=== PATIENT | female | born 2000 | race Caucasian/White ===

== ENCOUNTER 2025-01-19 06:26 | Inpatient (IN) ==
[~2025-01-19 06:26] MED LIST: XYLOCAINE 2 % (PLAIN) ONE
[2025-01-19] MEDS ORDERED: ANCEF VIAL 1 GRAM ONE (06:34)
[2025-01-19] MEDS ORDERED: LR 1,000 ML IV 1,000 ML IV ONE (06:34)
[2025-01-19] MEDS: LR 1,000 ML IV 1,000 ML IV SCH (06:51)
[2025-01-19] MEDS: ANCEF VIAL 1 GRAM IVP ONE (06:52)
[2025-01-19] MEDS: NS 100 ML IV 100 ML ONE (06:52)
[2025-01-19] MEDS: XYLOCAINE 2 % (PLAIN) ONE (06:54)
[2025-01-19] MEDS: REGLAN INJ 10 MG VIAL ONE (06:54)
[2025-01-19] MEDS: ZOFRAN INJ 4 MG VIAL ONE (06:54)
[2025-01-19] MEDS: EPHEDRINE SULFATE INJ ONE (06:54)
[2025-01-19] MEDS: PITOCIN ONE (06:54)
[2025-01-19] MEDS: PRECEDEX INJ VIAL ONE (06:54)
[2025-01-19] MEDS: MARCAINE SPINAL ONE (06:54)
[2025-01-19] MEDS: LR 1,000 ML IV 2,000 ML IV PRN (07:00)
[2025-01-19] MEDS: BICITRA 30 ML PO ONE (07:02)
[2025-01-19] MEDS: LR 1,000 ML IV 1,000 ML IV ONE (07:02)
[2025-01-19] MEDS: PEPCID 20 MG VIAL ONE (07:02)
[2025-01-19] MEDS: ZOFRAN INJ 4 MG VIAL IVP PRN (07:15)
[2025-01-19] MEDS: ANCEF VIAL 1 GRAM IV PRN (07:15)
[2025-01-19] MEDS: PEPCID 20 MG VIAL IVP PRN (07:15)
[2025-01-19] MEDS: REGLAN INJ 10 MG VIAL IVP PRN (07:15)
[2025-01-19] MEDS ORDERED: DANTRIUM PRN (07:18)
[2025-01-19] MEDS: OFIRMEV IV 1000 MG VIAL 1,000 MG/100 ML VIAL IV ONE (07:46)
[2025-01-19] MEDS: DIPRIVAN VIAL 20 ML ONE (07:47)
[2025-01-19] MEDS ORDERED: ZOFRAN INJ 4 MG VIAL IVP PRN ×2 (07:51→09:30)
[2025-01-19] MEDS ORDERED: DILAUDID INJ IVP PRN (07:51)
[2025-01-19] MEDS ORDERED: BENADRYL INJ 50 MG VIAL IVP PRN ×2 (07:51→09:30)
[2025-01-19] MEDS: OFIRMEV IV 1000 MG VIAL 1,000 MG/100 ML VIAL IV PRN (07:59)
[2025-01-19] MEDS: DIPRIVAN VIAL 150 ML IVP PRN (08:17)
[2025-01-19] MEDS ORDERED: XYLOCAINE 2 % (PLAIN) PRN (08:17)
[2025-01-19] MEDS: BENADRYL INJ 50 MG VIAL ONE (08:21)
[2025-01-19] MEDS: EPHEDRINE SULFATE INJ IVP PRN (08:23)
[2025-01-19] MEDS: BENADRYL INJ 50 MG VIAL IVP PRN (08:24)
[2025-01-19] MEDS: TORADOL 30 MG VIAL ONE (08:29)
[2025-01-19] MEDS: TORADOL 30 MG VIAL IVP PRN ×2 (08:30→13:57)
[2025-01-19] MEDS ORDERED: PITOCIN IVP PRN (08:46)
[2025-01-19] MEDS ORDERED: REGLAN INJ 10 MG VIAL IVP PRN (09:30)
[2025-01-19] MEDS ORDERED: MYLICON TAB 80 MG CHEW PO PRN (09:30)
[2025-01-19] MEDS: OXYTOCIN 20 UNIT/1,000 ML-NS 20 UNIT/1,000 ML PLAST..BAG IV SCH (10:09)
[2025-01-19] MEDS: PRENATAL PLUS PO SCH (11:18)
[2025-01-19] MEDS: HYPERRHO S/D (or RHOGAM) IM PRN (13:07)
[2025-01-19] MEDS: PERCOCET TAB 5/325 MG PO PRN (19:51)
[2025-01-20] MEDS: COLACE CAP 100 MG PO SCH (10:45)
[2025-01-20] MEDS: BACTROBAN TOPICAL OINT TOP SCH (14:09)
[2025-01-20] MEDS: ADACEL or BOOSTRIX TDaP VACCINE IM ONE (14:35)
[2025-01-20] MEDS: FERROUS GLUCONATE PO SCH (16:02)
[2025-01-20] MEDS: MOTRIN TAB 800 MG PO PRN (16:51)
[2025-01-21 03:54] VITALS: O2SAT 97
[2025-01-21] MEDS: PERCOCET TAB 5/325 MG PO PRN (06:10)
[2025-01-21 06:11] VITALS: RESP 19
[2025-01-21 09:53] VITALS: BP 130/66; PULSE 98; TEMP 98.1
== END 2025-01-21 10:25 | disposition home or self-care (01) | DRG 787 ==
LOC: LD 06:26 → MED/SURG 09:28
PROVIDERS: ADMIT Specialist; ATTEND Specialist
DX: Z3A.39 39 weeks gestation of pregnancy; O99.113 Other diseases of the blood and blood-forming organs and certain disorders involving the immune mechanism complicating pregnancy, third trimester; O34.211 Maternal care for low transverse scar from previous cesarean delivery; N85.8 Other specified noninflammatory disorders of uterus; Z37.0 Single live birth; Z01.812 Encounter for preprocedural laboratory examination; O98.311 Other infections with a predominantly sexual mode of transmission complicating pregnancy, first trimester